=== PATIENT | female | born 1970 | race Caucasian/White ===

== ENCOUNTER 2019-09-19 16:27 | Emergency (ER) | payer MEDICARE ==
[~2019-09-19] VITALS: Ht 162.6 cm; Wt 51.0 kg
[2019-09-19 16:39] VITALS: BP 137/87
--- NOTE | 2019-09-19 17:12 | NUR ---
"I DON'T TAKE MY MEDS ANYMORE. I KEEP MOVING AND MOVING SO I DON'T HAVE THEM"
--- NOTE | 2019-09-19 17:13 | NUR ---
PT STATES "I DON'T WANT A PRESCRIPTION. I HAVE ONE AT HOME. I JUST DIDN'T FILL IT YET."
--- NOTE | 2019-09-19 17:29 | NUR ---
Patient/Caregiver given discharge instructions and they have confirmed that they understand the instructions. Patient ambulatory with steady gait. PT LEFT WITH ALL PERSONAL BELONGINGS.
== END 2019-09-19 17:31 | disposition home or self-care (01) ==
LOC: ED 17:15
DX: J44.1 Chronic obstructive pulmonary disease with (acute) exacerbation (principal); F17.200 Nicotine dependence, unspecified, uncomplicated; F15.20 Other stimulant dependence, uncomplicated; Z72.9 Problem related to lifestyle, unspecified
CPT/HCPCS: 99283